=== PATIENT | male | born 1975 | race Caucasian/White ===

== ENCOUNTER 2017-01-11 08:08 | Emergency (ER) | payer OTHER ==
[~2017-01-11] VITALS: Ht 157.5 cm; Wt 88.5 kg
[2017-01-11 08:13] VITALS: Ht 157.5 cm; Wt 88.5 kg
--- NOTE | 2017-01-11 08:26 | ERD ---
ER Documentation Chief Complaint Date/Time DATE: 01/11/17 TIME: 08:25 Chief Complaint laceration to hand HPI 41-year-old who is right-hand dominant presents emergency department after work injury complaining of a laceration over his right third metacarpal from a piece of metal hitting his hand. He has localized pain that is sharp, worse with movement, better at rest. He denies any loss of function, numbness or paresthesias. He does not recall his last tetanus shot. ROS All systems reviewed and are negative except as per history of present illness. Allergies Allergies: Coded Allergies: No Known Allergy (Unverified , 01/11/17) PMhx/Soc Medical and Surgical Hx: pt denies Medical Hx Hx Substance Use: No Hx Tobacco Use: No Physical Exam Vitals Vital Signs Date Time Temp Pulse Resp B/P Pulse Ox O2 Delivery O2 Flow Rate FiO2 01/11/17 08:13 98.5 79 20 138/86 97 Physical Exam General: Well-developed, well-nourished. The patient appears in no acute distress. HEENT: Head is normocephalic, atraumatic. No scleral icterus. Neck: Supple. Nontender. Lungs: Clear to auscultation. Normal air movement. Heart: Regular rate and rhythm. S1 and S2 are normal. No murmurs, gallops, or rubs. Abdomen: Nondistended. Extremities: There is a 2 cm laceration over the right third metacarpal, there is soft tissue swelling. There is no active bleeding, no foreign body seen. He is able to make a fist. Neurologic: Alert and oriented 3. No focal deficits. Normal speech and gait. Skin: Normal turgor. No rash or lesions. Results 24 hrs Current Medications Medications (Trade) Dose Ordered Sig/Naomi Route PRN Reason Start Time Stop Time Status Last Admin Dose Admin Lidocaine (Xylocaine 1% (Mdv) 20 ml) 20 ml ONCE ONCE SC 01/11/17 08:30 01/11/17 08:31 DC DIAGNOSTIC IMAGING REPORT Patient: KATHRYN COHEN : 1975 Age: 41 Sex: M MR #: [id number] DOS: 01/11/17818 Ordering MD: NICOLE DEE PA-C Location: [facility] Room/Bed: PROCEDURE: XR Right Hand CLINICAL INDICATION: Trauma, laceration over right third metacarpal TECHNIQUE: PA, oblique, and lateral radiographs were submitted. COMPARISON: None FINDINGS: Osseous structures: appear well mineralized and intact with no fracture or destructive process identified. Joint spaces: are well maintained, with no significant spurring, erosion or joint effusion evident. Soft tissues: There is mild soft tissue swelling dorsal to the distal right third metacarpal head. No radiopaque foreign body is evident. IMPRESSION: 1. Mild soft tissue swelling dorsal to the distal right third metacarpal head. 2. Otherwise, unremarkable right hand series. Physician aZk Date Time Electronically viewed and signed by Physician Zak on 01/11/2017 08:54 RH/ CC: NICOLE DEE PA-C Procedures/MDM Laceration Repair by me: Patient was verbally consented Anesthesia: 1% lidocaine locally Location: Right third metacarpal Tendon/Joint/Nerves: No injury Foreign body: None detected after copious irrigation and exploration Technique: Simple Interrupted Sutures 3 using 4-0 Ethilon Complexity: No subcutaneous sutures/mucosal repair/ edge excision Post Closure Length: 2cm Patient's bleeding was easily controlled in the department and there is no indication of anemia. No evidence of compartment syndrome, neurologic injury, vascular injury, open joint, tendon laceration, or foreign body. Patient is appropriate for outpatient follow up. 48 hour wound check. Scar minimization instructions given. Medical decision makin-year-old male comes in with blunt trauma, causing a laceration over the right third metacarpal. Patient had an x-ray done of his right hand, unremarkable for any fracture. Laceration was closed without any complications, there are no signs of infection, tendon rupture, fracture, stable for discharge. Departure Diagnosis: Primary Impression: Laceration Condition: Good Patient Instructions: Laceration, Hand Additional Instructions: Follow up in 2 days in your clinic for wound check. Suture removal in 7 days NICOLE DEE PA-C Jan 11, 2017 08:26
[2017-01-11] MEDS ORDERED: LIDOCAINE 1% (MDV) 20 ML INJ SC ONE (08:30)
--- NOTE | 2017-01-11 08:54 | RADRPT ---
PROCEDURE: XR Right Hand CLINICAL INDICATION: Trauma, laceration over right third metacarpal TECHNIQUE: PA, oblique, and lateral radiographs were submitted. COMPARISON: None FINDINGS: Osseous structures: appear well mineralized and intact with no fracture or destructive process iden tified. Joint spaces: are well maintained, with no significant spurring, erosion or joint effusion evident. Soft tissues: There is mild soft tissue swelling dorsal to the distal right third metacarpal head. No radiopaque foreign body is evident. IMPRESSION: 1. Mild soft tissue swelling dorsal to the distal right third metacarpal head. 2. Otherwise, unremarkable right hand series. Physician Zak Date Time Electronically viewed and signed by Physician Zak on 01/11/2017 08:54 /
== END 2017-01-11 09:38 | disposition home or self-care (01) ==
LOC: FTE 08:08
DX: S61.411A Laceration without foreign body of right hand, initial encounter (principal); W26.8XXA Contact with other sharp object(s), not elsewhere classified, initial encounter; Y92.89 Other specified places as the place of occurrence of the external cause
CPT/HCPCS: 12001; 73130; Z7502; Z7610